=== PATIENT | female | born 1955 | race Caucasian/White ===

== ENCOUNTER → 2016-07-07 | Outpatient (REF) | payer OTHER ==
[~2016-07-07] MED LIST: ALBU17IN INH; ATEN25TA PO; CALC600T68 PO; CETI10TA PO; FISH1000 PO; FLON1SPR; GABA300C3 PO; LISI-542 PO; LISI10TA4 PO; OMEP40CA2 PO; PROBCAP14 PO; SIMV20TA2 PO; SIMV40TA2 PO; TURM500C3 PO; VITA250011 SL
== END | disposition home or self-care (01) ==
LOC: M SFHCLERA 09:55
PROVIDERS: ATTEND Nurse Practitioner Family
DX: J02.9 Acute pharyngitis, unspecified (principal)

== ENCOUNTER → 2016-08-13 | Outpatient (REF) | payer OTHER | LOC: M SFHCCLAY 08:05 | PROVIDERS: ATTEND Family Medicine | DX: Z95.5 Presence of coronary angioplasty implant and graft (principal) ==

== ENCOUNTER → 2016-10-09 | Outpatient (CLI) | payer OTHER ==
[~2016-10-09] MED LIST changes: +GABA-282 PO; -GABA300C3 PO
--- NOTE | 2016-10-10 02:40 | REP ---
Clinical: Lung screening. Smoking history. Technique: Axial noncontrast low-dose images from the thoracic inlet to the upper abdomen using lung screening technique. Findings: The patient is noted to be status post left mastectomy and left axillary node dissection. 2 mm noncalcified nodule in the perihilar right lung (image 34) is nonspecific. Scattered interstitial changes are noted bilaterally and predominately within the left lung likely related to prior therapeutic intervention for breast cancer. No further discrete nodule, consolidation or mass lesion identified. No pleural effusion. No pneumothorax. Impression: Lung-RADS IIC. A 2 mm nodule is identified in the right perihilar region along with scattered interstitial changes and presumed post therapeutic changes related to prior breast cancer. Findings limit evaluation and annual low-dose screening may be warranted. Signed by Gerardo Rainey MD 10/10/2016 02:32 A
== END ==
LOC: M RAD 09:48
PROVIDERS: ATTEND Family Medicine
DX: Z87.891 Personal history of nicotine dependence (principal); R91.1 Solitary pulmonary nodule; Z85.3 Personal history of malignant neoplasm of breast

== ENCOUNTER 2017-02-18 08:42 | Outpatient (CLI) | payer OTHER ==
[~2017-02-18] VITALS: Ht 162.6 cm; Wt 75.3 kg
[~2017-02-18 08:42] MED LIST changes: +PLAV1TAB2 PO
[2017-02-18] MEDS ORDERED: NS 1,000 ML IV ONE (08:45)
[2017-02-18] MEDS ORDERED: ASPI81TA85 PO (09:05)
[2017-02-18] MEDS ORDERED: PROPOFOL 200 MG/20 ML VIAL As Ordered ONE (10:18)
[2017-02-18] MEDS ORDERED: LIDOCAINE 2% INJ 100 MG/5 ML SDV (FOR ANES.) As Ordered ONE (10:18)
--- NOTE | 2017-02-18 10:59 | ROOR ---
Patient Name: Sally Lucia Procedure Date: 02/18/2017 10:07 AM Date of : 1955 Age: 61 Room: [facility] Gender: Female Note Status: Finalized Procedure: Upper GI endoscopy Indications: Dyspepsia, Suspected esophageal reflux Providers: Emeterio Whitmore MD Referring MD: Kei Shaw MD Requesting Provider: Medicines: Monitored Anesthesia Care Complications: No immediate complications. Procedure: Pre-Anesthesia Assessment: - Prior to the procedure, a History and Physical was performed, and patient medications and allergies were reviewed. The patient is competent. The risks and benefits of the procedure and the sedation options and risks were discussed with the patient. All questions were answered and informed consent was obtained. Patient identification and proposed procedure were verified by the physician, the nurse and the anesthesiologist in the procedure room. Mental Status Examination: alert and oriented. Airway Examination: normal oropharyngeal airway and neck mobility. Respiratory Examination: clear to auscultation. CV Examination: normal. Prophylactic Antibiotics: The patient does not require prophylactic antibiotics. Prior Anticoagulants: The patient has taken aspirin, last dose was 5 days prior to procedure. ASA Grade Assessment: III - A patient with severe systemic disease. After reviewing the risks and benefits, the patient was deemed in satisfactory condition to undergo the procedure. The anesthesia plan was to use monitored anesthesia care (MAC). Immediately prior to administration of medications, the patient was re-assessed for adequacy to receive sedatives. The heart rate, respiratory rate, oxygen saturations, blood pressure, adequacy of pulmonary ventilation, and response to care were monitored throughout the procedure. The physical status of the patient was re-assessed after the procedure. The Endoscope was introduced through the mouth, and advanced to the third part of duodenum. The upper GI endoscopy was accomplished without difficulty. The patient tolerated the procedure well. Findings: The Z-line was regular and was found 38 cm from the incisors. The entire examined stomach was normal. Estimated blood loss: none. The third portion of the duodenum was normal. Estimated blood loss: none. Impression: - Z-line regular, 38 cm from the incisors. - Normal stomach. - Normal third portion of the duodenum. - No specimens collected. Recommendation: - Discharge patient to home (ambulatory). - Resume previous diet. Emeterio Whitmore MD Emeterio Whitmore MD 02/18/2017 10:59:05 AM This report has been signed electronically. Number of Addenda: 0 Note Initiated On: 02/18/2017 10:07 AM Estimated Blood Loss: Estimated blood loss: none.
--- NOTE | 2017-02-18 11:03 | ROOR ---
Patient Name: Sally Lucia Procedure Date: 02/18/2017 10:09 AM Date of : 1955 Age: 61 Room: [facility] Gender: Female Note Status: Finalized Procedure: Colonoscopy Indications: High risk colon cancer surveillance: Personal history of colonic polyps Providers: Emeterio Whitmore MD Referring MD: Kei Shaw MD Requesting Provider: Medicines: Monitored Anesthesia Care Complications: No immediate complications. Procedure: Pre-Anesthesia Assessment: - Prior to the procedure, a History and Physical was performed, and patient medications and allergies were reviewed. The patient is competent. The risks and benefits of the procedure and the sedation options and risks were discussed with the patient. All questions were answered and informed consent was obtained. Patient identification and proposed procedure were verified by the physician, the nurse and the anesthesiologist in the endoscopy suite. Mental Status Examination: alert and oriented. Airway Examination: normal oropharyngeal airway and neck mobility. Respiratory Examination: clear to auscultation. CV Examination: normal. Prophylactic Antibiotics: The patient does not require prophylactic antibiotics. Prior Anticoagulants: The patient has taken Plavix (clopidogrel), last dose was 5 days prior to procedure. ASA Grade Assessment: III - A patient with severe systemic disease. After reviewing the risks and benefits, the patient was deemed in satisfactory condition to undergo the procedure. The anesthesia plan was to use monitored anesthesia care (MAC). Immediately prior to administration of medications, the patient was re-assessed for adequacy to receive sedatives. The heart rate, respiratory rate, oxygen saturations, blood pressure, adequacy of pulmonary ventilation, and response to care were monitored throughout the procedure. The physical status of the patient was re-assessed after the procedure. The Colonoscope was introduced through the anus and advanced to the cecum, identified by appendiceal orifice and ileocecal valve. The colonoscopy was performed without difficulty. The patient tolerated the procedure well. The quality of the bowel preparation was good. Findings: The perianal exam findings include non-thrombosed external hemorrhoids. Scattered small-mouthed diverticula were found in the sigmoid colon and descending colon. Two flat polyps were found in the transverse colon. The polyps were small in size. These polyps were removed with a hot snare. Resection and retrieval were complete. Estimated blood loss: none. Impression: - Non-thrombosed external hemorrhoids found on perianal exam. - Diverticulosis in the sigmoid colon and in the descending colon. - Two small polyps in the transverse colon, removed with a hot snare. Resected and retrieved. Recommendation: - Repeat colonoscopy in 5 years for surveillance. Emeterio Whitmore MD Emeterio Whitmore MD 02/18/2017 11:02:42 AM This report has been signed electronically. Number of Addenda: 0 Note Initiated On: 02/18/2017 10:09 AM Estimated Blood Loss: Estimated blood loss: none.
[2017-02-18 11:35] VITALS: BP 155/78
== END 2017-02-18 11:37 | disposition home or self-care (01) ==
LOC: M OPP 08:42
PROVIDERS: ATTEND Surgery
DX: Z12.11 Encounter for screening for malignant neoplasm of colon (principal); D12.3 Benign neoplasm of transverse colon; K57.30 Diverticulosis of large intestine without perforation or abscess without bleeding; K64.4 Residual hemorrhoidal skin tags; Z86.010 Personal history of colon polyps; R10.13 Epigastric pain; I10 Essential (primary) hypertension; E78.00 Pure hypercholesterolemia, unspecified; I25.10 Atherosclerotic heart disease of native coronary artery without angina pectoris; F41.9 Anxiety disorder, unspecified; R51 Headache; Z85.3 Personal history of malignant neoplasm of breast; Z86.74 Personal history of sudden cardiac arrest; Z87.891 Personal history of nicotine dependence; Z79.82 Long term (current) use of aspirin; Z79.899 Other long term (current) drug therapy

== ENCOUNTER → 2017-03-25 | Outpatient (REF) | payer OTHER ==
[~2017-03-25] MED LIST changes: +ASPI81TA85 PO
== END ==
LOC: M SFHCLERA 10:08
PROVIDERS: ATTEND Physician Assistant
DX: J02.9 Acute pharyngitis, unspecified (principal)

== ENCOUNTER → 2017-10-28 | Outpatient (CLI) | payer OTHER | LOC: M RAD 15:31 | DX: R91.1 Solitary pulmonary nodule (principal); Z90.12 Acquired absence of left breast and nipple | CPT/HCPCS: 71250 ==

== ENCOUNTER → 2018-01-27 | Outpatient (REF) | payer OTHER | LOC: M SFHCLERA 09:10 | DX: D23.61 Other benign neoplasm of skin of right upper limb, including shoulder (principal) | CPT/HCPCS: 88305 ==

== ENCOUNTER → 2018-03-30 | Outpatient (REF) | payer OTHER ==
[2018-03-30 17:45] LABS: ALBUMIN 3.7 GM/DL (3.2-5.2); ALBUMIN/GLOBULIN RATIO 1.06 (1.00-1.93); ALKALINE PHOSPHATASE 65 U/L (45-117); ALT/SGPT 26 U/L (12-78); ANION GAP 6 MEQ/L (8-16); AST/SGOT 30 U/L (7-37); BILIRUBIN,TOTAL 0.5 MG/DL (0.2-1.0); BLOOD UREA NITROGEN 9 MG/DL (7-18); CALCIUM LEVEL 8.9 MG/DL (8.8-10.2); CARBON DIOXIDE LEVEL 32 MEQ/L (21-32); CHLORIDE LEVEL 104 MEQ/L (98-107); CHOLESTEROL LEVEL 209 MG/DL (<200); CHOLESTEROL RISK RATIO 4.446 (<5); CPK CREATINE PHOSPHOKINASE 78 U/L (26-192); CREATININE FOR GFR 0.67 MG/DL (0.55-1.30); GLOMERULAR FILTRATION RATE > 60.0 (>45); GLUCOSE, FASTING 74 MG/DL (70-100); HDL CHOLESTEROL 47 MG/DL (>40); LDL CHOLESTEROL 136 MG/DL (<100); NON-HDL-C 162 MG/DL; POTASSIUM SERUM 4.3 MEQ/L (3.5-5.1); SODIUM LEVEL 142 MEQ/L (136-145); TOTAL PROTEIN 7.2 GM/DL (6.4-8.2); TRIGLYCERIDES LEVEL 130 MG/DL (<150)
== END ==
LOC: M SFHCCLAY 13:30
DX: I25.810 Atherosclerosis of coronary artery bypass graft(s) without angina pectoris (principal); Z95.5 Presence of coronary angioplasty implant and graft

== ENCOUNTER → 2018-04-21 | Outpatient (CLI) | payer OTHER | LOC: M WHC 13:10 | DX: Z78.0 Asymptomatic menopausal state (principal) | CPT/HCPCS: 77080 ==

== ENCOUNTER 2018-08-11 06:33 | Emergency (ER) | payer OTHER ==
[~2018-08-11] VITALS: Ht 165.1 cm; Wt 75.0 kg
[~2018-08-11 06:33] MED LIST changes: -GABA-282 PO; +GABA-843 PO
[2018-08-11 07:00] LABS: BASO % 0.5 % (0.0-1.0); EOS # 0.2 10^3/uL (0.0-0.50); EOS % 2.1 % (0.0-3.0); HEMATOCRIT 41.3 % (36.0-47.0); HEMOGLOBIN 13.5 g/dl (12.0-15.5); LYMPH # 2.3 10^3/uL (1.5-4.5); LYMPH % 27.1 % (24.0-44.0); MEAN CORPUSCULAR HEMOGLOBIN 31.7 pg (27.0-33.0); MEAN CORPUSCULAR HGB CONC 32.7 g/dl (32.0-36.5); MEAN CORPUSCULAR VOLUME 96.9 fl (80.0-96.0); MONO # 0.4 10^3/uL (0.0-0.8); MONO % 4.5 % (0.0-5.0); NEUTROPHILS # 5.6 10^3/uL (1.8-7.7); NEUTROPHILS % 65.5 % (36.0-66.0); PLATELET COUNT, AUTOMATED 253 10^3/uL (150-450); RED BLOOD COUNT 4.26 10^6/uL (4.00-5.40); WHITE BLOOD COUNT 8.6 10^3/uL (4.0-10.0)
[2018-08-11 07:14] LABS: ALBUMIN 3.5 GM/DL (3.2-5.2); ALT/SGPT 26 U/L (12-78); BILIRUBIN,DIRECT 0.1 MG/DL (0.0-0.2); BILIRUBIN,TOTAL 0.5 MG/DL (0.2-1.0); BLOOD UREA NITROGEN 13 MG/DL (7-18); CALCIUM LEVEL 8.5 MG/DL (8.8-10.2); CARBON DIOXIDE LEVEL 30 MEQ/L (21-32); CHLORIDE LEVEL 105 MEQ/L (98-107); CPK CREATINE PHOSPHOKINASE 59 U/L (26-192); CREATININE FOR GFR 0.82 MG/DL (0.55-1.30); GLOMERULAR FILTRATION RATE > 60.0 (>45); GLUCOSE, FASTING 155 MG/DL (70-100); LIPASE 81 U/L (73-393); MB/CK RELATIVE INDEX 2.03 (< OR =4); POTASSIUM SERUM 4.5 MEQ/L (3.5-5.1); SODIUM LEVEL 140 MEQ/L (136-145); TOTAL PROTEIN 6.9 GM/DL (6.4-8.2); TROPONIN I < 0.02 NG/ML (< 0.10)
[2018-08-11] MEDS ORDERED: PANTOPRAZOLE 40MG INJ (PROTONIX) (C9113) IV ONE (07:15)
[2018-08-11] MEDS ORDERED: GI COCKTAIL 50ML BTL(HYOSCYAMINE/MAALOX/LIDOCAINE VISCOUS)(1:3:1) PO ONE (07:15)
[2018-08-11 07:18] LABS: INR 0.92; PROTHROMBIN TIME 12.4 SECONDS (12.1-14.4)
[2018-08-11 07:19] LABS: PARTIAL THROMBOPLASTIN TIME 29.1 SECONDS (25.4-37.6)
--- NOTE | 2018-08-11 07:31 | REP ---
Clinical: Acute chest pain . Comparison: 03/01/2016 . Findings: The mediastinum and cardiac silhouette are stable and within normal limits for portable technique. The lung myers demonstrate chronic stable changes without acute consolidation, effusion, or pneumothorax. Skeletal structures are intact. Impression: No acute cardiopulmonary process appreciated. Electronically Signed by Gerardo Rainey MD 08/11/2018 07:22 A
[2018-08-11] MEDS ORDERED: ISOVUE-370 76% 100ML VIAL (Q9967) As Ordered ONE (07:46)
[2018-08-11] MEDS ORDERED: ACETAMINOPHEN TAB 650MG DOSE (2X325MG) PO ONE (08:45)
[2018-08-11] MEDS ORDERED: MORPHINE 4 MG/ML 1ML VIAL/SYRINGE (J2270) IV ONE (08:45)
[2018-08-11 13:30] LABS: MB/CK RELATIVE INDEX 7.53 (< OR =4); TROPONIN I 0.26 NG/ML (< 0.10)
[2018-08-11] MEDS ORDERED: NITROGLYCERIN 2% OINT 1 GM *U/D* PKT TOP ONE (15:00)
[2018-08-11] MEDS ORDERED: HEPARIN DRIP 25,000 UNITS in APPROPRIATE DILUENT 1 EA IV SCH (15:07)
[2018-08-11 15:09] VITALS: BP 143/71
[2018-08-11] MEDS ORDERED: HEPARIN SOD (PORCINE) 5000 UNITS/ML VIAL IV ONE (15:15)
[2018-08-11] MEDS ORDERED: CLOPIDOGREL 300 MG TAB (PLAVIX) PO ONE (15:15)
[2018-08-11 16:38] VITALS: BP 141/64
--- NOTE | 2018-08-12 07:44 | ECGEPIP ---
Stationary ECG Study [facility] - ED Test Date: 2018-08-11 Pat Name: SIXTO MEYERS Department: Room: - Gender: F Senior Merchandiser: KCJ : 1955 Requested By: BRUNO Freitas Order Number: [id number] Reading MD: Dequan Martinez Measurements Intervals [place] Rate: 55 P: 42 NH: 174 QRS: 19 QRSD: 102 T: 63 QT: 414 QTc: 397 Interpretive Statements SINUS BRADYCARDIA INCOMPLETE RIGHT BUNDLE BRANCH BLOCK NONSPECIFIC T-WAVE ABNORMALITY SIMILAR TO 03/01/16 Electronically Signed On 08-12-2018 7:44:22 EST by Dequan Martinez
--- NOTE | 2018-08-12 07:56 | ECGEPIP ---
Stationary ECG Study [facility] - ED Test Date: 2018-08-11 Pat Name: SIXTO MEYERS Department: Room: - Gender: F Junior Web Developer: KCJ : 1955 Requested By: BRUNO Freitas Order Number: [id number] Reading MD: Dequan Martinez Measurements Intervals [place] Rate: 65 P: 41 SC: 178 QRS: 13 QRSD: 104 T: 76 QT: 427 QTc: 445 Interpretive Statements SINUS RHYTHM WITH SINUS ARRHYTHMIA INCOMPLETE RIGHT BUNDLE BRANCH BLOCK NSTTW ABNORMALITIES SIMILAR TO PRIOR ON SAME DATE Electronically Signed On 08-12-2018 7:56:35 EST by Dequan Martinez
== END 2018-08-11 16:42 | disposition short-term general hospital (02) ==
LOC: EDBD 06:33 → M ED 06:33
DX: I25.110 Atherosclerotic heart disease of native coronary artery with unstable angina pectoris (principal); I25.2 Old myocardial infarction; Z95.1 Presence of aortocoronary bypass graft; Z95.5 Presence of coronary angioplasty implant and graft; Z79.899 Other long term (current) drug therapy; Z79.82 Long term (current) use of aspirin; Z88.8 Allergy status to other drugs, medicaments and biological substances; Z91.040 Latex allergy status
CPT/HCPCS: 71045; 80048; 80076; 82550; 82553; 83690; 85025; 85379; 85610; 85730; 93005; 93041; 94760; 96374; 96375; 99285; C9113; J2270; Q9967

== ENCOUNTER → 2018-09-27 | Outpatient (REF) | payer OTHER ==
[~2018-09-27] MED LIST changes: +CALC1TAB8 PO; -CALC600T68 PO
== END ==
LOC: M SFHCLERA 13:42
PROVIDERS: ATTEND Nurse Practitioner Family
DX: J02.9 Acute pharyngitis, unspecified (principal)